=== PATIENT | female | born 1935 | race Caucasian/White ===

== ENCOUNTER 2020-06-02 20:11 | Emergency (ER) | payer OTHER ==
[2020-06-02 20:56] LABS: Absolute Neutrophil Ct (ANC) 4.65 (1.4-6.9); BASOPHIL % 0.4 % (0.0-0.4); Basophil (Absolute #) 0.04 (0-0.4); Eosinophil % 3.5 % (0.00-5.0); Eosinophil (Absolute #) 0.31 (0-0.5); Hematocrit 39.6 % (35-47); Hemoglobin 12.8 gm/dl (12.0-16.0); Mean Cell Volume 97.1 fl (78-100); Mean Corpuscular Hemoglobin 31.4 pg (26-32); Mean Corpuscular Hgb Concent. 32.3 g/dl (32-36); Mean Platelet Volume 12.8 fl (7.5-11.0); Monocyte (Absolute #) 0.55 (0.0-1.3); Monocytes % 6.1 % (0.0-12.0); Platelet Count 197 K/mm3 (150-450); Red Blood Count 4.08 M/mm3 (4.1-5.4); Red Cell Distribution Width 12.2 % (11.5-14.0)
[2020-06-02 21:08] LABS: ALBUMIN 4.8 g/dL (3.5-5.0); ALKALINE PHOSPHATASE 69 U/L (38-126); ANION GAP 17.3 MEQ/L (5-15); BLOOD UREA NITROGEN 41 mg/dL (7-17); CHLORIDE 102 mmol/L (98-107); Calcium 11.4 mg/dL (8.4-10.2); Carbon Dioxide 28 mmol/L (22-30); Creatinine 1 1.98 mg/dL (0.52-1.04); EST GLOMERULAR FILTRATION RATE 25.6 ML/MIN; ETHYL ALCOHOL < 10 mg/dL (0-10); Glucose 112 mg/dL (74-106); MAGNESIUM 1.6 mg/dL (1.6-2.3); Potassium 3.6 mmol/L (3.5-5.1); SGOT/AST 41 U/L (14-36); SGPT/ALT 30 U/L (0-35); SODIUM 143 mmol/L (137-145); Total Protein 7.6 g/dL (6.3-8.2)
[2020-06-02 21:46] LABS: Appearance CLEAR (CLEAR); Bilirubin NEGATIVE (NEGATIVE); Blood NEGATIVE Ery/ul (0-5); Glucose NEGATIVE (NEGATIVE); Ketones NEGATIVE (NEGATIVE); Leukocyte Esterase SMALL (NEGATIVE); Mucus SLIGHT /HPF (NEGATIVE); Nitrite NEGATIVE (NEGATIVE); Protein,Urine Dip NEGATIVE (Negative); RBC 0-2 /HPF (0-2); Specific Gravity 1.015 (1.005-1.025); Urobilinogen 2 mg/dL (0-1)
--- NOTE | 2020-06-02 21:50 | ERPHSYRPT ---
- History of Present Illness Time Seen by Provider: 06/02/20 20:15 Source: patient Exam Limitations: no limitations Patient Subjective Stated Complaint: "My blood pressure won't come down." Triage Nursing Assessment: Patient reported concern for high blood pressure. She reported recently changing her blood pressure medication and having trouble r egulating her blood pressure at home. She reported having a single isolated event of garbled speech one week ago without any other episodes since then. Denied past CVA/TIA. Denied pain at this time. Head atraumatic normocephalic. Pupils 3mm brisk direct and consensual reaction to light. Oral mucosa pink/moist. neck supple non-tender without lymphadenopathy. Carotid arteries without bruits/thrill. Heart tones S1/S2 regular rate and rhythm. Lungs vesicular with adequate airflow. Abdomen soft non-distened with normoactive bowel sounds. Peripheral pulses +2 bilateral. Gait steady without complications. Speech clear. No noted facial droop or pronator drift. Physician History: Patient is an 84-year-old female presents to our emergency department for evaluation of hypertension. Patient states that she has been experiencing hypertension for several weeks. 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 Patient recently had blood pressure medications changed. Patient became concerned today when she checked her blood pressure and it was 190 systolic. Patient states that last week she had an episode of garbled speech. However this lasted just a couple minutes and resolved. Patient had no other symptomology no numbness tingling or weakness. No chest pain,nausea or vomiting or diaphoresis. Patient did not seek medical attention at that time. Patient has a history of CABG. Patient voices no other complaints or concerns at this time. Timing/Duration: today, week(s) (1 week) Severity: mild Modifying Factors: Improves With: nothing Associated Symptoms: denies symptoms, No diaphoresis, No cough, No chest pain, No fever, No malaise, No syncope, No seizure, No weakness Allergies/Adverse Reactions: No Known Drug Allergies Allergy (Unverified 06/02/20 20:23) Home Medications: Atorvastatin Calcium [Lipitor 40Mg] 1 tab PO DAILY 06/02/20 [History] Atorvastatin Calcium [Lipitor 40Mg] 1 tab PO DAILY 06/02/20 [History] Furosemide 20 mg [Lasix 20 mg] 1 tab PO DAILY 06/02/20 [History] Levothyroxine Sodium 100 Mcg [Synthroid 100 Mcg] 1 tab PO DAILY 06/02/20 [ History] Lisinopril 1 tab PO DAILY 06/02/20 [History] Metoprolol Tartrate 25 mg [Lopressor 25MG Tab] 0.5 tab PO BID 06/02/20 [History] Hx Tetanus, Diphtheria Vaccination/Date Given: Yes Hx Influenza Vaccination/Date Given: Yes Hx Pneumococcal Vaccination/Date Given: No Travel Risk - International Travel Have you traveled outside of the country in past 3 weeks: No - Coronavirus Screening Are you exhibiting any of the following symptoms?: No Close contact with a COVID-19 positive Pt in past 14-21 Days: No - Review of Systems Constitutional: No Symptoms, No Fever, No Chills Eyes: No Symptoms Ears, Nose, & Throat: No Symptoms Respiratory: No Symptoms, No Cough, No Dyspnea Cardiac: No Symptoms, No Chest Pain, No Edema, No Syncope Abdominal/Gastrointestinal: No Symptoms, No Abdominal Pain, No Nausea, No Vomiting, No Diarrhea Genitourinary Symptoms: No Symptoms, No Dysuria Musculoskeletal: No Symptoms, No Back Pain, No Neck Pain Skin: No Symptoms, No Rash Neurological: No Symptoms, No Dizziness, No Focal Weakness, No Sensory Changes Psychological: No Symptoms Endocrine: No Symptoms Hematologic/Lymphatic: No Symptoms Immunological/Allergic: No Symptoms All Other Systems: Reviewed and Negative - Past Medical History Pertinent Past Medical History: Yes Neurological History: No Pertinent History ENT History: No Pertinent History Cardiac History: Coronary Artery Disease, High Cholesterol, Hypertension Respiratory History: No Pertinent History Endocrine Medical History: Hypothyroidism Musculoskeletal History: Arthritis GI Medical History: No Pertinent History History: No Pertinent History Psycho-Social History: No Pertinent History Female Reproductive Disorders: Fibroids - Past Surgical History Past Surgical History: Yes Neuro Surgical History: No Pertinent History Cardiac: CABG Respiratory: No Pertinent History Gastrointestinal: Appendectomy Genitourinary: No Pertinent History Musculoskeletal: Joint Replacement Female Surgical History: Hysterectomy Other Surgical History: bilateral hips and right shoulder replacement. - Social History Smoking Status: Never smoker Exposure to second hand smoke: No Drug Use: none Patient Lives Alone: Yes - Nursing Vital Signs Nursing Vital Signs: Initial Vital Signs Pulse Rate 91 H 06/02/20 20:12 Respiratory Rate 18 06/02/20 20:12 Blood Pressure 193/83 06/02/20 20:12 O2 Sat by Pulse Oximetry 98 06/02/20 20:12 Pain Scale Pain Intensity 0 - Physical Exam General Appearance: no apparent distress, alert Eye Exam: PERRL/EOMI, eyes nml inspection Ears, Nose, Throat Exam: normal ENT inspection, TMs normal, pharynx normal, moist mucous membranes Neck Exam: normal inspection, non-tender, supple, full range of motion Respiratory Exam: normal breath sounds, lungs clear, No respiratory distress Cardiovascular Exam: regular rate/rhythm, normal heart sounds, normal peripheral pulses Gastrointestinal/Abdomen Exam: soft, normal bowel sounds, No tenderness, No mass Back Exam: normal inspection, normal range of motion, No CVA tenderness, No vertebral tenderness Extremity Exam: normal inspection, normal range of motion, pelvis stable Neurologic Exam: alert, oriented x 3, cooperative, normal mood/affect, nml cerebellar function, sensation nml, No motor deficits Skin Exam: normal color, warm, dry, No rash Lymphatic Exam: No adenopathy SpO2 Interpretation: normal SpO2: 98 O2 Delivery: Room Air - Course Nursing assessment & vital signs reviewed: Yes EKG Interpreted by Me: RATE (79), Sinus Rhythm, NORMAL AXIS, NORMAL INTERVALS - CT Exams Head CT Interpretation: Tele-radiologist Report (Comes. 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 Atrophy plus degenerative microischemia otherwise negative CT head.) Ordered Tests: Active Orders 24 hr Category Date Time Status Lightout Examiner STAT Care 06/02/20 20:49 Active EKG-ER Only STAT Care 06/02/20 20:47 Active IV Insertion STAT Care 06/02/20 20:47 Active Pulse Oximetry (ED) STAT Care 06/02/20 20:47 Active HEAD WITHOUT CONTRAST [CT] Stat Exams 06/02/20 20:49 Taken CBC W DIFF Stat Lab 06/02/20 20:53 Completed CMP Stat Lab 06/02/20 20:53 Completed ETHYL ALCOHOL Stat Lab 06/02/20 20:53 Completed MAGNESIUM Stat Lab 06/02/20 20:53 Completed TROPONIN Q3H Lab 06/02/20 20:53 Completed TROPONIN Q3H Lab 06/03/20 00:04 Completed TROPONIN Q3H Lab 06/03/20 03:00 Ordered TROPONIN Q3H Lab 06/03/20 06:00 Ordered TROPONIN Q3H Lab 06/03/20 09:00 Ordered UA W/RFX UR CULTURE Stat Lab 06/02/20 21:20 Completed Urine Triage Profile Stat Lab 06/02/20 21:20 Completed Medication Summary Generic Name Dose Route Start Last Admin Trade Name Freq PRN Reason Stop Dose Admin Nitroglycerin/Dextrose 250 mls @ 1.5 mls/hr 06/03/20 00:19 06/03/20 00:38 Ntg 0.2mg/Ml In D5w Glass IV 07/03/20 00:18 5 mcg/min .Q24H PRN 1.5 mls/hr CHEST PAIN Administration Protocol 5 MCG/MIN Heparin Sodium/Dextrose 25,000 units in 250 mls @ 10 mls/hr 06/03/20 01:00 0 06/03/20 00:37 Heparin 25,000 Units/D5w 250ml Premix IV 07/03/20 00:59 10 mls/hr .Q24H TAYLOR 10 mls/hr Administration Discontinued Medications Generic Name Dose Route Start Last Admin Trade Name Freq PRN Reason Stop Dose Admin Heparin Sodium (Beef Lung) Confirm 06/03/20 00:29 Heparin 5000 Units/0.5 Ml (High Risk Med) Administered 06/03/20 00:30 Dose 5,000 unit .ROUTE .STK-MED ONE Heparin Sodium (Beef Lung) 5,000 unit 06/03/20 00:33 06/03/20 00:36 Heparin 5000 Units/0.5 Ml (High Risk Med) IV 06/03/20 00:34 5,000 unit STAT ONE Administration Heparin Sodium/Dextrose Confirm 06/03/20 00:29 Heparin 25,000 Units/D5w 250ml Premix Administered 06/03/20 00:30 Dose 25,000 units in 250 mls @ ud IV .STK-MED ONE Lab/Rad Data: Laboratory Result Diagrams 06/02/20 20:53 06/02/20 20:53 Laboratory Results 06/03/20 06/02/20 06/02/20 Range/Units 00:04 21:20 21:20 WBC (4.0-10.5) K/mm3 RBC (4.1-5.4) M/mm3 Hgb (12.0-16.0) gm/dl Hct (35-47) % MCV (78-100) fl MCH (26-32) pg MCHC (32-36) g/dl RDW (11.5-14.0) % Plt Count (150-450) K/mm3 MPV (7.5-11.0) fl Gran % (36.0-66.0) % Eos # (Auto) (0-0.5) Absolute Lymphs (auto) (1.0-4.6) Absolute Monos (auto) (0.0-1.3) Lymphocytes % (24.0-44.0) % Monocytes % (0.0-12.0) % Eosinophils % (0.00-5.0) % Basophils % (0.0-0.4) % Absolute Granulocytes (1.4-6.9) Basophils # (0-0.4) Sodium (137-145) mmol/L Potassium (3.5-5.1) mmol/L Chloride (98-107) mmol/L Carbon Dioxide (22-30) mmol/L Anion Gap (5-15) MEQ/L BUN (7-17) mg/dL Creatinine (0.52-1.04) mg/dL Estimated GFR ML/MIN Glucose (74-106) mg/dL Calcium (8.4-10.2) mg/dL Magnesium (1.6-2.3) mg/dL Total Bilirubin (0.2-1.3) mg/dL AST (14-36) U/L ALT (0-35) U/L Alkaline Phosphatase (38-126) U/L Troponin I 0.046 H* (0.000-0.034) ng/mL Serum Total Protein (6.3-8.2) g/dL Albumin (3.5-5.0) g/dL Urine Color YELLOW (YELLOW) Urine Appearance CLEAR (CLEAR) Urine pH 6.0 (5-6) Ur Specific Wentworth 1.015 (1.005-1.025) Urine Protein NEGATIVE (Negative) Urine Ketones NEGATIVE (NEGATIVE) Urine Blood NEGATIVE (0-5) Romulo/ul Urine Nitrite NEGATIVE (NEGATIVE) Urine Bilirubin NEGATIVE (NEGATIVE) Urine Urobilinogen 2 (0-1) mg/dL Ur Leukocyte Esterase SMALL (NEGATIVE) Urine WBC (Auto) 3-5 (0-5) /HPF Urine RBC (Auto) 0-2 (0-2) /HPF U Epithel Cells (Auto) NONE (FEW) /HPF Urine Bacteria (Auto) NONE (NEGATIVE) /HPF Urine Mucus (Auto) SLIGHT (NEGATIVE) /HPF Urine Culture Reflexed NO (NO) Urine Glucose NEGATIVE (NEGATIVE) mg/dL Urine Opiates Level NEGATIVE (NEGATIVE) Ur Methadone NEGATIVE (NEGATIVE) Urine Barbiturates NEGATIVE (NEGATIVE) Ur Phencyclidine (PCP) NEGATIVE (NEGATIVE) Urine Amphetamine NEGATIVE (NEGATIVE) U Benzodiazepine Level NEGATIVE (NEGATIVE) Urine Cocaine NEGATIVE (NEGATIVE) Urine Marijuana (THC) NEGATIVE (NEGATIVE) Ethyl Alcohol (0-10) mg/dL 06/02/20 06/02/20 06/02/20 Range/Units 20:53 20:53 20:53 WBC 9.0 (4.0-10.5) K/mm3 RBC 4.08 L (4.1-5.4) M/mm3 Hgb 12.8 (12.0-16.0) gm/dl Hct 39.6 (35-47) % MCV 97.1 (78-100) fl MCH 31.4 (26-32) pg MCHC 32.3 (32-36) g/dl RDW 12.2 (11.5-14.0) % Plt Count 197 (150-450) K/mm3 MPV 12.8 H (7.5-11.0) fl Gran % 52.0 (36.0-66.0) % Eos # (Auto) 0.31 (0-0.5) Absolute Lymphs (auto) 3.40 (1.0-4.6) Absolute Monos (auto) 0.55 (0.0-1.3) Lymphocytes % 38.0 (24.0-44.0) % Monocytes % 6.1 (0.0-12.0) % Eosinophils % 3.5 (0.00-5.0) % Basophils % 0.4 (0.0-0.4) % Absolute Granulocytes 4.65 (1.4-6.9) Basophils # 0.04 (0-0.4) Sodium 143 (137-145) mmol/L Potassium 3.6 (3.5-5.1) mmol/L Chloride 102 (98-107) mmol/L Carbon Dioxide 28 (22-30) mmol/L Anion Gap 17.3 H (5-15) MEQ/L BUN 41 H (7-17) mg/dL Creatinine 1.98 H (0.52-1.04) mg/dL Estimated GFR 25.6 ML/MIN Glucose 112 H (74-106) mg/dL Calcium 11.4 H (8.4-10.2) mg/dL Magnesium 1.6 (1.6-2.3) mg/dL Total Bilirubin 0.60 (0.2-1.3) mg/dL AST 41 H (14-36) U/L ALT 30 (0-35) U/L Alkaline Phosphatase 69 (38-126) U/L Troponin I 0.019 (0.000-0.034) ng/mL Serum Total Protein 7.6 (6.3-8.2) g/dL Albumin 4.8 (3.5-5.0) g/dL Urine Color (YELLOW) Urine Appearance (CLEAR) Urine pH (5-6) Ur Specific Wentworth (1.005-1.025) Urine Protein (Negative) Urine Ketones (NEGATIVE) Urine Blood (0-5) Romulo/ul Urine Nitrite (NEGATIVE) Urine Bilirubin (NEGATIVE) Urine Urobilinogen (0-1) mg/dL Ur Leukocyte Esterase (NEGATIVE) Urine WBC (Auto) (0-5) /HPF Urine RBC (Auto) (0-2) /HPF U Epithel Cells (Auto) (FEW) /HPF Urine Bacteria (Auto) (NEGATIVE) /HPF Urine Mucus (Auto) (NEGATIVE) /HPF Urine Culture Reflexed (NO) Urine Glucose (NEGATIVE) mg/dL Urine Opiates Level (NEGATIVE) Ur Methadone (NEGATIVE) Urine Barbiturates (NEGATIVE) Ur Phencyclidine (PCP) (NEGATIVE) Urine Amphetamine (NEGATIVE) U Benzodiazepine Level (NEGATIVE) Urine Cocaine (NEGATIVE) Urine Marijuana (THC) (NEGATIVE) Ethyl Alcohol < 10 (0-10) mg/dL - Progress Progress: improved Progress Note: 06/03/20 00:30 Patient is a 84-year-old female presents to our ED initially with concerns of possible stroke. Patient states she had garbled speech approximately 1 week ago. Patient has been checking her blood pressure at home. She is observed that her blood pressure was persistently elevated. CT head negative for acute intracranial pathology. Patient reassessed. No chest pain. Initial troponin 0 0.019. Follow-up troponin 0 0.046. Patient has a history of CABG x3 vessels. CABG was performed 20 years ago. Patient did say that she was experiencing some lower extremity swelling. However her primary doctor started her on Lasix. Her primary doctor is now retired. Patient's blood pressure was initially elevated 190 systolic. Blood pressure gradually improved down to 160 systolic. Blood pressure improved spontaneously. No antihypertensives were administered. In light of her history and progressively elevating troponin heparin and nitroglycerin drip was started. We do not have cardiology specialty in our hospital. Patient will be transferred to [facility] for further evaluation and treatment. We spoke to transfer center at [facility]. Patient was auto accepted. Patient will be transferred ED to ED. Counseled pt/family regarding: lab results, diagnosis, need for follow-up, rad results - Departure Departure Disposition: Transfer Clinical Impression: Hypertension, CRI (chronic renal insufficiency), NSTEMI (non-ST elevated myocardial infarction), Elevated troponin Condition: Stable Critical Care Time: No Referrals: RUDY DAIGLE MD [Primary Care Provider] - Additional Instructions: Discharge/Care Plan LUZ CARCAMO was seen on 06/02/20 in the Emergency Room. The patient was couns eled regarding Diagnosis,Lab results, Imaging studies, need for follow up and when to return to the Emergency Room. Prescriptions given: Discharge Note I have spoken with the patient and/or caregivers. I have explained the patient's condition, diagnosis and treatment plan based on the information available to me at this time. I have answered the patient's and/or caregiver's questions and addressed any concerns. The patient and/or caregivers have as good understanding of the patient's diagnosis, condition and treatment plan as can be expected at this point. The vital signs have been stable. The patient's condition is stable and appropriate for discharge from the emergency department. The patient will pursue further outpatient evaluation with the primary care physician or other designated or consulting physician as outlined in the discharge instructions. The patient and/or caregivers are agreeable to this plan of care and follow-up instructions have been explained in detail. The patient and/or caregivers have received these instruction. The patient/and or caregivers are aware that any significant change in condition or worsening of symptoms should prompt an immediate return to this or the closest emergency department or call 911.
[2020-06-02 21:58] LABS: Amphetamine,Urine NEGATIVE (NEGATIVE); Barbiturate,Urine NEGATIVE (NEGATIVE); Benzodiazepine,Urine NEGATIVE (NEGATIVE); Cocaine,Urine NEGATIVE (NEGATIVE); Methadone,Urine NEGATIVE (NEGATIVE); Opiate,Urine NEGATIVE (NEGATIVE); PCP,Urine NEGATIVE (NEGATIVE); THC,Urine NEGATIVE (NEGATIVE)
[2020-06-03] MEDS ORDERED: Heparin 25,000 units/D5W 250ML PREMIX 25,000 UNITS/250 ML BAG IV ONE (00:29)
[2020-06-03] MEDS ORDERED: Heparin 5000 UNITS/0.5 ML (HIGH RISK MED) ONE (00:29)
[2020-06-03] MEDS ORDERED: Ntg 0.2MG/Ml in D5W GLASS*** 250 ML IV ONE (00:36)
[2020-06-03] MEDS: Heparin 5000 UNITS/0.5 ML (HIGH RISK MED) IV ONE (00:36)
[2020-06-03] MEDS: Heparin 25,000 units/D5W 250ML PREMIX 25,000 UNITS/250 ML BAG IV SCH (00:37)
[2020-06-03] MEDS: Ntg 0.2MG/Ml in D5W GLASS*** 250 ML IV PRN (00:38)
[2020-06-03 01:32] VITALS: BP 171/65; PULSE 80; O2SAT 99
--- NOTE | 2020-06-03 08:40 | XRAY ---
Indication: Slurred speech 1 week. High blood pressure. Multiple contiguous axial images obtained through the head without contrast. Comparison: None Age-appropriate global atrophy and mild periventricular degenerative micro-ischemia bilaterally. 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 No acute intracranial hemorrhage, abnormal extra-axial fluid collection, or mass effect. Fourth ventricle is midline without hydrocephalus. Bony calvarium intact. Visualized paranasal sinuses and mastoid air cells are clear. 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
== END 2020-06-03 01:15 | disposition short-term general hospital (02) ==
LOC: ED 20:11
DX: I12.9 Hypertensive chronic kidney disease with stage 1 through stage 4 chronic kidney disease, or unspecified chronic kidney disease (principal); N18.9 Chronic kidney disease, unspecified; I21.4 Non-ST elevation (NSTEMI) myocardial infarction; I25.10 Atherosclerotic heart disease of native coronary artery without angina pectoris; E78.00 Pure hypercholesterolemia, unspecified; E03.9 Hypothyroidism, unspecified; Z79.899 Other long term (current) drug therapy
CPT/HCPCS: 36000; 36415; 70450; 80053; 80307; 81001; 83735; 84484; 85025; 93005; 93041; 94760; 96374; 99285; J1644; G0480

== ENCOUNTER 2021-05-03 23:57 | Emergency (ER) | payer MEDICARE, OTHER ==
--- NOTE | 2021-05-04 00:18 | ERPHSYRPT ---
- History of Present Illness Time Seen by Provider: 05/04/21 00:15 Source: patient, EMS Exam Limitations: no limitations Patient Subjective Stated Complaint: high blood pressure Triage Nursing Assessment: pt c/o htn. Was watching tv this evening and states, "I could just feel my b/p going up and I checked it at home it was 174/85. It continued to go up". EMS had 213/83. Lungs clear, heart tones reg, abd soft with active bs x4 quad, nontender. Physician History: This is an 85-year-old white female patient of Dr. Daigle and tablet machine operator Dr. Bhardwaj who presents to the emergency department with high blood pressure. Patient has a history of hypertension. Tonight, patient was watching a crime show when suddenly felt similar symptoms of generalized warmth. She has had this feeling before when her blood pressure was up. Her blood pressure was in the 190s systolic and was persistently elevated in that range when she checked it a few times. Therefore, she called the EMS service who brought her to the emergency department for evaluation. Patient has a history of hypertension and hypothyroidism. She also has a history of coronary artery disease and coronary artery bypass graft. Patient denies visual changes. She denies headache. She denies chest pain. She has no shortness of breath. On arrival to the emergency department her systolic blood pressure was 229 but within 10 minutes her systolic blood pressure did drop to 188 but was still elevated. She last took hydralazine at 8 PM on 05/03/2021. She also takes metoprolol for her blood pressure. Timing/Duration: today Severity: moderate Associated Symptoms: diaphoresis Allergies/Adverse Reactions: No Known Drug Allergies Allergy (Verified 05/04/21 00:12) Home Medications: Atorvastatin Calcium [Lipitor 40Mg] 1 tab PO DAILY 06/02/20 [History] Furosemide 20 mg [Lasix 20 mg] 1 tab PO DAILY 06/02/20 [History] Levothyroxine Sodium 100 Mcg [Synthroid 100 Mcg] 88 mcg PO DAILY 06/02/20 [History] Metoprolol Tartrate 25 mg [Lopressor 25MG Tab] 0.5 tab PO BID 06/02/20 [History] Aspirin 81 mg PO DAILY 05/04/21 [History] Cholecalciferol (Vitamin D3) [Vitamin D] 1,000 unit PO BID 05/04/21 [H istory] Cyanocobalamin (Vitamin B-12) [Vitamin B12] 1,000 mcg PO WEEKLY 05/04/21 [History] Famotidine 40 mg PO DAILY 05/04/21 [History] Fluticasone Propionate [Flonase NASAL] 2 sprays IH DAILY 05/04/21 [History] HydrALAzine HCL 25 MG TAB [Apresoline 25 MG TABLET] 25 mg PO BID 05/04/21 [History] Levocetirizine Dihydrochloride [Allergy Relief] 5 mg PO DAILY 05/04/21 [History] Nitroglycerin 0.4 mg Tablet [Nitrostat 0.4 MG Tablet] 1 tab PO DAILY PRN PRN 05/04/21 [History] Hx Tetanus, Diphtheria Vaccination/Date Given: No Hx Influenza Vaccination/Date Given: Yes Hx Pneumococcal Vaccination/Date Given: Yes Immunizations Up to Date: No Travel Risk - International Travel Have you traveled outside of the country in past 3 weeks: No - Coronavirus Screening Are you exhibiting any of the following symptoms?: No Close contact with a COVID-19 positive Pt in past 14-21 Days: No - Vaccine Status Have you recieved a Covid-19 vaccination: Yes 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 Comment: [place] booster - Review of Systems Constitutional: No Symptoms Eyes: No Symptoms Ears, Nose, & Throat: No Symptoms Respiratory: No Symptoms Cardiac: No Symptoms Abdominal/Gastrointestinal: No Symptoms Genitourinary Symptoms: No Symptoms Musculoskeletal: No Symptoms Skin: No Symptoms Neurological: No Symptoms Psychological: Anxiety Endocrine: No Symptoms Hematologic/Lymphatic: No Symptoms Immunological/Allergic: No Symptoms All Other Systems: Reviewed and Negative - Past Medical History Pertinent Past Medical History: Yes Neurological History: No Pertinent History ENT History: No Pertinent History, Cataracts Cardiac History: Coronary Artery Disease, High Cholesterol, Hypertension Respiratory History: No Pertinent History Endocrine Medical History: Hypothyroidism Musculoskeletal History: Arthritis GI Medical History: No Pertinent History History: No Pertinent History Psycho-Social History: No Pertinent History Female Reproductive Disorders: Fibroids - Past Surgical History Past Surgical History: Yes Neuro Surgical History: No Pertinent History Cardiac: CABG, Cardiac Catheterization Respiratory: No Pertinent History Gastrointestinal: Appendectomy Genitourinary: No Pertinent History Musculoskeletal: Joint Replacement Female Surgical History: Hysterectomy Other Surgical History: bilateral hips and right shoulder replacement. - Social History Smoking Status: Never smoker Exposure to second hand smoke: No Drug Use: none Patient Lives Alone: Yes - Female History Hx Now: No - Nursing Vital Signs Nursing Vital Signs: Initial Vital Signs Temperature 97.4 F 05/04/21 00:00 Pulse Rate 69 05/04/21 00:00 Respiratory Rate 18 05/04/21 00:00 Blood Pressure 229/112 05/04/21 00:00 O2 Sat by Pulse Oximetry 98 05/04/21 00:00 Pain Scale Pain Intensity 0 - Physical Exam General Appearance: no apparent distress, alert, anxiety Eye Exam: PERRL/EOMI, eyes nml inspection Ears, Nose, Throat Exam: normal ENT inspection, moist mucous membranes Neck Exam: normal inspection, non-tender, supple, full range of motion Respiratory Exam: normal breath sounds, lungs clear, airway intact, No chest tenderness, No respiratory distress Cardiovascular Exam: regular rate/rhythm, normal heart sounds, normal peripheral pulses Gastrointestinal/Abdomen Exam: soft, normal bowel sounds, No tenderness Pelvic Exam: not done Rectal Exam: not done, No tenderness Back Exam: normal inspection, normal range of motion, No vertebral tenderness Extremity Exam: normal inspection, normal range of motion, pelvis stable Neurologic Exam: alert, oriented x 3, cooperative, hospital plan administrator II-XII nml as tested, normal mood/affect, nml cerebellar function, nml station & gait, sensation nml Skin Exam: normal color, warm, dry Lymphatic Exam: No adenopathy SpO2 Interpretation: normal SpO2: 98 O2 Delivery: Room Air - Course Nursing assessment & vital signs reviewed: Yes EKG Interpreted by Me: RATE (60), Sinus Rhythm, NORMAL AXIS, NORMAL QRS, NORMAL ST-T, Other (Prolonged AL interval and LVH. When compared to EKG dated 06/02/2020, there is resolution of PVCs that were present on that EKG. There are no acute ischemic changes on either EKG.) Ordered Tests: Active Orders 24 hr Category Date Time Status EKG-ER Only STAT Care 05/04/21 00:18 Active IV Insertion STAT Care 05/04/21 00:18 Active Pulse Oximetry (ED) STAT Care 05/04/21 00:18 Active CBC W DIFF Stat Lab 05/04/21 00:31 Completed CMP Stat Lab 05/04/21 00:31 Completed NT PRO BNP Stat Lab 05/04/21 00:31 Completed T4 (Thyroxine) Stat Lab 05/04/21 00:59 Completed TROPONIN Q3H Lab 05/04/21 00:31 Completed TROPONIN Q3H Lab 05/04/21 03:30 Ordered TROPONIN Q3H Lab 05/04/21 06:30 Ordered TROPONIN Q3H Lab 05/04/21 09:30 Ordered TROPONIN Q3H Lab 05/04/21 12:30 Ordered TSH [TSH, 3RD Generation] Stat Lab 05/04/21 00:59 Completed Medication Summary Discontinued Medications Generic Name Dose Route Start Last Admin Trade Name Freq PRN Reason Stop Dose Admin Enalaprilat 0.625 mg 05/04/21 01:25 05/04/21 01:28 Enalaprilat 2.5 Mg Injection IV 05/04/21 01:26 0.625 mg STAT ONE Administration Enalaprilat Confirm 05/04/21 01:27 Enalaprilat 2.5 Mg Injection Administered 05/04/21 01:28 Dose 2.5 mg IV .STK-MED ONE Hydralazine HCl 10 mg 05/04/21 00:37 05/04/21 00:46 Hydralazine Hcl 20 Mg/Ml Vial IV 05/04/21 00:38 10 mg STAT ONE Administration Hydralazine HCl Confirm 05/04/21 00:42 Hydralazine Hcl 20 Mg/Ml Vial Administered 05/04/21 00:43 Dose 20 mg .ROUTE .STK-MED ONE Lab/Rad Data: Laboratory Result Diagrams 05/04/21 00:31 05/04/21 00:31 Laboratory Results 05/04/21 05/04/21 05/04/21 Range/Units 00:59 00:59 00:31 WBC (4.0-10.5) K/mm3 RBC (4.1-5.4) M/mm3 Hgb (12.0-16.0) gm/dl Hct (35-47) % MCV (78-100) fl MCH (26-32) pg MCHC (32-36) g/dl RDW (11.5-14.0) % Plt Count (150-450) K/mm3 MPV (7.5-11.0) fl Gran % (36.0-66.0) % Eos # (Auto) (0-0.5) Absolute Lymphs (auto) (1.0-4.6) Absolute Monos (auto) (0.0-1.3) Lymphocytes % (24.0-44.0) % Monocytes % (0.0-12.0) % Eosinophils % (0.00-5.0) % Basophils % (0.0-0.4) % Absolute Granulocytes (1.4-6.9) Basophils # (0-0.4) Sodium (137-145) mmol/L Potassium (3.5-5.1) mmol/L Chloride (98-107) mmol/L Carbon Dioxide (22-30) mmol/L Anion Gap (5-15) MEQ/L BUN (7-17) mg/dL Creatinine (0.52-1.04) mg/dL Estimated GFR ML/MIN Glucose (74-106) mg/dL Calcium (8.4-10.2) mg/dL Total Bilirubin (0.2-1.3) mg/dL AST (14-36) U/L ALT (0-35) U/L Alkaline Phosphatase (38-126) U/L Troponin I 0.021 (0.000-0.034) ng/mL NT-Pro-B Natriuret Pep (0-1800) pg/mL Serum Total Protein (6.3-8.2) g/dL Albumin (3.5-5.0) g/dL Thyroxine (T4) 9.64 (5.53-10.96) ug/dL TSH 3rd Generation 1.640 (0.47-4.68) mIU/L 05/04/21 05/04/21 Range/Units 00:31 00:31 WBC 8.3 (4.0-10.5) K/mm3 RBC 3.91 L (4.1-5.4) M/mm3 Hgb 12.6 (12.0-16.0) gm/dl Hct 37.8 (35-47) % MCV 96.7 (78-100) fl MCH 32.2 H (26-32) pg MCHC 33.3 (32-36) g/dl RDW 12.7 (11.5-14.0) % Plt Count 200 (150-450) K/mm3 MPV 12.5 H (7.5-11.0) fl Gran % 50.7 (36.0-66.0) % Eos # (Auto) 0.42 (0-0.5) Absolute Lymphs (auto) 3.08 (1.0-4.6) Absolute Monos (auto) 0.56 (0.0-1.3) Lymphocytes % 37.0 (24.0-44.0) % Monocytes % 6.7 (0.0-12.0) % Eosinophils % 5.0 (0.00-5.0) % Basophils % 0.6 (0.0-0.4) % Absolute Granulocytes 4.22 (1.4-6.9) Basophils # 0.05 (0-0.4) Sodium 139 (137-145) mmol/L Potassium 3.5 (3.5-5.1) mmol/L Chloride 103 (98-107) mmol/L Carbon Dioxide 25 (22-30) mmol/L Anion Gap 14.3 (5-15) MEQ/L BUN 20 H (7-17) mg/dL Creatinine 1.30 H (0.52-1.04) mg/dL Estimated GFR 41.5 ML/MIN Glucose 101 (74-106) mg/dL Calcium 10.6 H (8.4-10.2) mg/dL Total Bilirubin 0.50 (0.2-1.3) mg/dL AST 41 H (14-36) U/L ALT 36 H (0-35) U/L Alkaline Phosphatase 73 (38-126) U/L Troponin I (0.000-0.034) ng/mL NT-Pro-B Natriuret Pep 627 (0-1800) pg/mL Serum Total Protein 7.1 (6.3-8.2) g/dL Albumin 4.5 (3.5-5.0) g/dL Thyroxine (T4) (5.53-10.96) ug/dL TSH 3rd Generation (0.47-4.68) mIU/L - Progress Progress: improved Progress Note: 05/04/21 02:01 Patient states that she is feeling much better. She is very comfortable. She denies headache. She denies visual changes. She denies chest pain. She denies shortness of breath. Blood pressure at discharge sbp 140s and dbp 70s 05/04/21 02:02 Counseled pt/family regarding: lab results, diagnosis, need for follow-up - Departure Departure Disposition: Home Clinical Impression: Hypertensive urgency Condition: Stable Critical Care Time: Yes Critical Care Time(excluding separately billable procedures): Critical 30-74 mins Referrals: RUDY DAIGLE MD [Primary Care Provider] - Follow up/PCP as directed Additional Instructions: Resume your blood pressure medication this morning. Keep your appointment with Dr. Bhardwaj, your tablet machine operator, on 05/08/2021. Keep a a.m., noon and p.m. log of your blood pressure to show your tablet machine operator.
[2021-05-04 00:35] LABS: Absolute Neutrophil Ct (ANC) 4.22 (1.4-6.9); Basophil (Absolute #) 0.05 (0-0.4); Eosinophil (Absolute #) 0.42 (0-0.5); Hematocrit 37.8 % (35-47); Hemoglobin 12.6 gm/dl (12.0-16.0); Lymphocyte (Absolute #) 3.08 (1.0-4.6); Mean Cell Volume 96.7 fl (78-100); Mean Corpuscular Hemoglobin 32.2 pg (26-32); Mean Corpuscular Hgb Concent. 33.3 g/dl (32-36); Mean Platelet Volume 12.5 fl (7.5-11.0); Monocyte (Absolute #) 0.56 (0.0-1.3); Monocytes % 6.7 % (0.0-12.0); Neutrophil % 50.7 % (36.0-66.0); Platelet Count 200 K/mm3 (150-450); Red Blood Count 3.91 M/mm3 (4.1-5.4); Red Cell Distribution Width 12.7 % (11.5-14.0); White Blood Count 8.3 K/mm3 (4.0-10.5)
[2021-05-04] MEDS ORDERED: APRESOLINE 20 MG/ML INJ IV ONE (00:37)
[2021-05-04] MEDS ORDERED: APRESOLINE 20 MG/ML INJ ONE (00:42)
[2021-05-04 00:55] LABS: ALBUMIN 4.5 g/dL (3.5-5.0); ANION GAP 14.3 MEQ/L (5-15); BILIRUBIN,TOTAL 0.5 mg/dL (0.2-1.3); Calcium 10.6 mg/dL (8.4-10.2); Creatinine 1 1.3 mg/dL (0.52-1.04); EST GLOMERULAR FILTRATION RATE 41.5 ML/MIN; Potassium 3.5 mmol/L (3.5-5.1); Total Protein 7.1 g/dL (6.3-8.2)
[2021-05-04] MEDS ORDERED: VASOTEC I.V. 2.5 MG IV ONE ×2 (01:25→01:27)
[2021-05-04 01:55] VITALS: BP 146/75; PULSE 51
[2021-05-04 02:04] VITALS: O2SAT 98
== END 2021-05-04 02:12 | disposition home or self-care (01) ==
LOC: ED 23:57
DX: I16.0 Hypertensive urgency (principal); I10 Essential (primary) hypertension; I25.10 Atherosclerotic heart disease of native coronary artery without angina pectoris; E78.5 Hyperlipidemia, unspecified; Z79.899 Other long term (current) drug therapy
CPT/HCPCS: 36000; 36415; 80053; 83880; 84436; 84443; 84484; 85025; 93005; 94760; 96374; 99284; 99291; J0360

== ENCOUNTER 2024-01-18 08:24 | Emergency (ER) | payer MEDICARE ==
[2024-01-18 08:38] VITALS: TEMP 97.8
--- NOTE | 2024-01-18 08:42 | ERPHSYRPT ---
- History of Present Illness Time Seen by Provider: 01/18/24 08:40 Source: patient, family Exam Limitations: no limitations Patient Subjective Stated Complaint: Pt states that around 2300 last night she had head pain on the back right base and felt something "pop" and then she slept all night and now left side is hurting but the right side is not Triage Nursing Assessment: Pt brought to the ER by her daughter, hypertensive, bradycardic, rates pain as 2/10 at this time, reports that her left arm/shoulder "just doesn't feel right", pulses normal, denies chest pain, no difficulty breathing, skin n/w/d, no defecits noted, doesn't appear to be in any distress Physician History: Pt states that around 2300 last night she had head pain on the back right base and felt something "pop" and then she slept all night and now left side is hurting but the right side is not. reports that her left arm/shoulder "just doesn't feel right", denies chest pain, no difficulty breathing, skin n/w/d, no defecits noted, doesn't appear to be in any distress Timing/Duration: yesterday Quality: aching Severity of Pain-Max: mild Severity of Pain-Current: mild Recent Head Trauma: no recent headache/trauma Associated Symptoms: stiff neck, No loss of consciousness, No sensitive to ligh t, No speech problems Previous symptoms: no prior history Allergies/Adverse Reactions: No Known Drug Allergies Allergy (Verified 01/18/24 08:37) Home Medications: Atorvastatin Calcium [Lipitor 40Mg] 1 tab PO DAILY 06/02/20 [History] Furosemide 20 mg [Lasix 20 mg] 1 tab PO DAILY 06/02/20 [History] Levothyroxine Sodium 100 Mcg [Synthroid 100 Mcg] 88 mcg PO DAILY 06/02/20 [History] Aspirin 81 mg PO DAILY 05/04/21 [History] Cholecalciferol (Vitamin D3) [Vitamin D] 1,000 unit PO BID 05/04/21 [History] Cyanocobalamin (Vitamin B-12) [Vitamin B12] 1,000 mcg PO WEEKLY 05/04/21 [History] Famotidine 40 mg PO DAILY 05/04/21 [History] HydrALAzine HCL 25 MG TAB [Apresoline 25 MG TABLET] 50 mg PO BID 05/04/21 [History] Levocetirizine Dihydrochloride [Allergy Relief] 5 mg PO DAILY 05/04/21 [History] Amlodipine Besylate 5 mg [Norvasc 5 mg] 5 mg PO BID 01/18/24 [History] Escitalopram Oxalate [Lexapro] 5 mg PO DAILY 01/18/24 [History] Isosorbide Mononitrate [Isosorbide Mononitrate ER] 60 mg PO DAILY 01/18/24 [History] Metoprolol Succinate [Kapspargo Sprinkle] 25 mg PO DAILY 01/18/24 [History] Hx Tetanus, Diphtheria Vaccination/Date Given: No Hx Influenza Vaccination/Date Given: Yes Hx Pneumococcal Vaccination/Date Given: Yes Travel Risk - International Travel Have you traveled outside of the country in past 3 weeks: No - Emerging Infectious Disease Are you exhibiting symptoms associated with any current EIDs: No - Review of Systems Constitutional: No Fever, No Chills Eyes: No Symptoms Ears, Nose, & Throat: No Symptoms Respiratory: No Cough, No Dyspnea Cardiac: No Chest Pain, No Edema, No Syncope Abdominal/Gastrointestinal: No Abdominal Pain, No Nausea, No Vomiting, No Diarrhea Genitourinary Symptoms: No Dysuria Musculoskeletal: Neck Pain, No Back Pain, No Fall, No Joint Redness, No Joint Pain, No Joint Swelling Skin: No Rash Neurological: Focal Weakness (left shoulder), Headache, No Dizziness, No Sensory Changes Psychological: No Symptoms Endocrine: No Symptoms Hematologic/Lymphatic: No Symptoms All Other Systems: Reviewed and Negative - Past Medical History Pertinent Past Medical History: Yes Neurological History: No Pertinent History ENT History: No Pertinent History, Cataracts Cardiac History: Coronary Artery Disease, High Cholesterol, Hypertension Respiratory History: No Pertinent History Endocrine Medical History: Hypothyroidism Musculoskeletal History: Arthritis GI Medical History: No Pertinent History History: No Pertinent History Psycho-Social History: No Pertinent History Female Reproductive Disorders: Fibroids - Past Surgical History Past Surgical History: Yes Neuro Surgical History: No Pertinent History Cardiac: CABG, Cardiac Catheterization Respiratory: No Pertinent History Gastrointestinal: Appendectomy Genitourinary: No Pertinent History Musculoskeletal: Joint Replacement Female Surgical History: Hysterectomy Other Surgical History: bilateral hips and right shoulder replacement. - Social History Smoking Status: Never smoker Exposure to second hand smoke: No Drug Use: none Patient Lives Alone: Yes - Social Determinants of Health Will the patient participate in the screening: Yes Do you worry about a steady place to live?: No Do you have any problems with any of the following?: No known problems In the past 12 months,have you had to go without utilities?: No Transportation Issues: No Has anyone in your support network made you feel unsafe?: No Have you or anyone in your house had to go without enough: No - Nursing Vital Signs Nursing Vital Signs: Initial Vital Signs Temperature 97.8 F 01/18/24 08:28 Pulse Rate 58 L 01/18/24 08:28 Respiratory Rate 20 01/18/24 08:28 Blood Pressure 168/66 01/18/24 08:28 O2 Sat by Pulse Oximetry 97 01/18/24 08:28 Pain Scale Pain Intensity 4 - Physical Exam General Appearance: no apparent distress Eye Exam: PERRL/EOMI Ears, Nose, Throat Exam: normal ENT inspection, moist mucous membranes Neck Exam: normal inspection, supple, full range of motion, No meningismus Respiratory Exam: normal breath sounds, lungs clear Cardiovascular Exam: regular rate/rhythm, normal heart sounds Gastrointestinal/Abdominal Exam: soft, No tenderness, No distention Back Exam: normal inspection, normal range of motion Extremity Exam: normal inspection, normal range of motion, pelvis stable Mental Status Exam: alert, oriented x 3, 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 Exam: normal speech, PERRL, tongue midline, No abnormal eye position, No facial asymmetry, No facial droop, No facial paresthesias, No facial weakness Coordination/Gait Exam: normal cerebellar function Motor/Sensory Exam: no motor deficit, no sensory deficit DTR Exam: bicep (R): 2+, bicep (L): 2+, tricep (R): 2+, tricep (L): 2+, knee (R): 2+, knee (L): 2+, ankle (R): 2+, ankle (L): 2+ Skin Exam: normal color, warm, dry, No rash SpO2 Interpretation: normal SpO2: 97 O2 Delivery: Room Air - Course Nursing assessment & vital signs reviewed: Yes EKG Interpreted by Me: Non-specific ST Changes Rhythm Strip: Normal Sinus Rhythm - Radiology Exams Chest X-ray Interpretation: Interpreted by me, Reviewed by me, Teleradiologist Report - CT Exams Head CT Interpretation: Tele-radiologist Report Ordered Tests: Active Orders 24 hr Category Date Time Status EKG-ER Only STAT Care 01/18/24 08:48 Active IV Insertion STAT Care 01/18/24 08:48 Active CHEST 1 VIEW (PORTABLE) Stat Exams 01/18/24 08:49 Taken HEAD WITHOUT CONTRAST [CT] Stat Exams 01/18/24 08:53 Completed CBC W DIFF Stat Lab 01/18/24 09:11 Completed CMP Stat Lab 01/18/24 09:11 Completed D-DIMER QUANTITATIVE Stat Lab 01/18/24 09:11 Completed MAGNESIUM Stat Lab 01/18/24 09:11 Completed NT PRO BNPII Stat Lab 01/18/24 09:11 Completed PROTIME WITH INR Stat Lab 01/18/24 09:11 Completed TROPONIN Q4H Lab 01/18/24 09:11 Completed TSH [TSH, 3RD Generation] Stat Lab 01/18/24 09:11 Completed UA W/RFX UR CULTURE Stat Lab 01/18/24 09:21 Completed Angie 7-14 Day Holter ONCE RT 01/18/24 10:54 Completed Holter Monitor ASORD RT 01/18/24 10:31 Completed Medication Summary Discontinued Medications Generic Name Dose Route Start Last Admin Trade Name Lauren PRN Reason Stop Dose Admin Acetaminophen 975 mg 01/18/24 08:48 01/18/24 09:15 Acetaminophen 325 Mg Tablet PO 01/18/24 08:49 975 mg STAT ONE Administration Acetaminophen Confirm 01/18/24 09:13 Acetaminophen 325 Mg Tablet Administered 01/18/24 09:14 Dose 975 mg .ROUTE .STK-MED ONE Lab/Rad Data: Laboratory Result Diagrams 01/18/24 09:11 01/18/24 09:11 Laboratory Results 01/18/24 01/18/24 01/18/24 Range/Units 09:21 09:11 09:11 WBC (3.98-10.04) x10^3/uL RBC (3.93-5.22) x10^6/uL Hgb (11.2-15.7) g/dL Hct (34.1-44.9) % MCV (79.4-94.8) fL MCH (25.6-32.2) pg MCHC (32.2-35.5) g/dL RDW (11.7-14.4) % Plt Count (182-369) x10^3/uL MPV (9.4-12.3) fL Gran % (34.0-71.1) % Immature Gran % (Auto) (0.001-0.429) % Nucleat RBC Rel Count (0.00-0.2) % Eos # (Auto) (0.04-0.36) x10^3/uL Immature Gran # (Auto) (0.001-0.031) x10^3u/L Absolute Lymphs (auto) (1.18-3.74) x10^3/uL Absolute Monos (auto) (0.24-0.86) x10^3/uL Absolute Nucleated RBC (0.00-0.012) x10^3u/L Lymphocytes % (19.3-51.7) % Monocytes % (4.7-12.5) % Eosinophils % (0.7-5.8) % Basophils % (0.1-1.2) % Absolute Granulocytes (1.56-6.13) x10^3/uL Basophils # (0.01-0.08) x10^3/uL PT (9.4-12.5) SECONDS INR (0.8-3.0) D-Dimer (0.0-0.50) mg/L Sodium (135-145) mmol/L Potassium (3.5-5.1) mmol/L Chloride (98-107) mmol/L Carbon Dioxide (22-30) mmol/L Anion Gap (5-15) MEQ/L BUN (7-17) mg/dL Creatinine (0.52-1.04) mg/dL Estimated GFR ML/MIN Glucose (74-106) mg/dL Calcium (8.4-10.2) mg/dL Magnesium (1.6-2.3) mg/dL Total Bilirubin (0.2-1.3) mg/dL AST (14-36) U/L ALT (0-35) U/L Alkaline Phosphatase (38-126) U/L Troponin I < 0.012 (0.000-0.033) ng/mL NT-Pro-B Natriuret Pep (<300) pg/mL Serum Total Protein (6.3-8.2) g/dL Albumin (3.5-5.0) g/dL TSH 3rd Generation 0.452 L (0.470-4.680) mIU/L Urine Color Yellow (Yellow) Urine Appearance Clear (Clear) Urine pH 5.5 (4.6-8.0) Ur Specific [place] 1.010 (1.005-1.030) Urine Protein Negative (Negative) Urine Glucose (UA) Negative (Negative) mg/dL Urine Ketones Negative (Negative) Urine Blood Negative (Negative) Urine Nitrite Negative (Negative) Urine Bilirubin Negative (Negative) Urine Urobilinogen 0.2 (0.2) mg/dL Ur Leukocyte Esterase Negative (Negative) U Hyaline Cast (Auto) NONE SEEN (0-2) /LPF Urine Microscopic RBC 0-2 (0-5) /HPF Urine Microscopic WBC 0-2 (0-5) /HPF Ur Epithelial Cells None Seen (None Seen) /HPF Urine Bacteria None Seen (None Seen) /HPF Urine Culture Reflexed NO (NO) Slides for Path Review 01/18/24 01/18/24 01/18/24 Range/Units 09:11 09:11 09:11 WBC 7.1 (3.98-10.04) x10^3/uL RBC 3.91 L (3.93-5.22) x10^6/uL Hgb 12.3 (11.2-15.7) g/dL Hct 36.8 (34.1-44.9) % MCV 94.1 (79.4-94.8) fL MCH 31.5 (25.6-32.2) pg MCHC 33.4 (32.2-35.5) g/dL RDW 12.4 (11.7-14.4) % Plt Count 215 (182-369) x10^3/uL MPV 12.2 (9.4-12.3) fL Gran % 54.9 (34.0-71.1) % Immature Gran % (Auto) 0.1 (0.001-0.429) % Nucleat RBC Rel Count 0.0 (0.00-0.2) % Eos # (Auto) 0.21 (0.04-0.36) x10^3/uL Immature Gran # (Auto) 0.01 (0.001-0.031) x10^3u/L Absolute Lymphs (auto) 2.51 (1.18-3.74) x10^3/uL Absolute Monos (auto) 0.41 (0.24-0.86) x10^3/uL Absolute Nucleated RBC 0.00 (0.00-0.012) x10^3u/L Lymphocytes % 35.2 (19.3-51.7) % Monocytes % 5.8 (4.7-12.5) % Eosinophils % 2.9 (0.7-5.8) % Basophils % 1.1 (0.1-1.2) % Absolute Granulocytes 3.91 (1.56-6.13) x10^3/uL Basophils # 0.08 (0.01-0.08) x10^3/uL PT 10.9 (9.4-12.5) SECONDS INR 1.00 (0.8-3.0) D-Dimer 0.88 H* (0.0-0.50) mg/L Sodium 143 (135-145) mmol/L Potassium 3.7 (3.5-5.1) mmol/L Chloride 108 H (98-107) mmol/L Carbon Dioxide 22 (22-30) mmol/L Anion Gap 15.8 H (5-15) MEQ/L BUN 31 H (7-17) mg/dL Creatinine 1.43 H (0.52-1.04) mg/dL Estimated GFR 35.5 ML/MIN Glucose 109 H (74-106) mg/dL Calcium 10.8 H (8.4-10.2) mg/dL Magnesium 1.5 L (1.6-2.3) mg/dL Total Bilirubin 0.60 (0.2-1.3) mg/dL AST 40 H (14-36) U/L ALT 42 H (0-35) U/L Alkaline Phosphatase 62 (38-126) U/L Troponin I (0.000-0.033) ng/mL NT-Pro-B Natriuret Pep 553 (<300) pg/mL Serum Total Protein 7.1 (6.3-8.2) g/dL Albumin 4.5 (3.5-5.0) g/dL TSH 3rd Generation (0.470-4.680) mIU/L Urine Color (Yellow) Urine Appearance (Clear) Urine pH (4.6-8.0) Ur Specific [place] (1.005-1.030) Urine Protein (Negative) Urine Glucose (UA) (Negative) mg/dL Urine Ketones (Negative) Urine Blood (Negative) Urine Nitrite (Negative) Urine Bilirubin (Negative) Urine Urobilinogen (0.2) mg/dL Ur Leukocyte Esterase (Negative) U Hyaline Cast (Auto) (0-2) /LPF Urine Microscopic RBC (0-5) /HPF Urine Microscopic WBC (0-5) /HPF Ur Epithelial Cells (None Seen) /HPF Urine Bacteria (None Seen) /HPF Urine Culture Reflexed (NO) Slides for Path Review YES CLINICAL HISTORY: headache COMPARISON: None. TECHNIQUE: Axial non-contrast CT scan of the brain was performed from the skull base to the high parietal region. One of the following dose reduction techniques were utilized for this exam: Automated exposure control, adjustment of the mA and/or kV according to patient size, use of iterative reconstruction. CTDI: 53.92 mGy, DLP: 1083.55 mGycm FINDINGS: Brain Parenchyma: Lacunar infarct in left external capsule. Periventricular small vessel ischemic changes. Normal attenuation of rest of cerebral hemispheres, cerebellum, and brainstem. No evidence of hemorrhage, or mass effect. Ventricular System: Age-related prominence of ventricles. Subarachnoid Spaces: Prominent sulci and cisterns. No evidence of subarachnoid hemorrhage or extra-axial fluid collections. PatientID: [id number] Patient Name: LUZ CARCAMO Exam Date: 01/18/2024 Procedure: HEAD WITHOUT CONTRAST page 1 of 2 Cerebellum and Brainstem: Normal size and attenuation. Orbits: Normal appearance of the globes, optic nerves, and extraocular muscles. Sinuses: Clear paranasal sinuses. No evidence of sinusitis or mucosal thickening. Mastoid Air Cells: Clear mastoid air cells. No evidence of mastoiditis. Skull and Meninges: Normal skull morphology. IMPRESSION: 1. 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 2. Age-related brain atrophy and periventricular small vessel ischemic changes. ECHO REPORT DATE OF PROCEDURE: 10/09/2023 REFERRING PHYSICIAN: Rudy Daigle MD, and Geoffrey Bhardwaj MD. PROCEDURE: Echocardiogram. REASON FOR EXAMINATION: Heart murmur and hypertension. DESCRIPTION OF FINDINGS: Patient underwent 2D echo, M-mode study, and color flow mapping, which showed mild concentric left ventricular hypertrophy with left ventricular wall thickness of 1.3 cm, normal LV size measuring 4.7 cm, and normal LV systolic function with a calculated ejection fraction of 74%. The left atrium appears to be mildly enlarged. The right atrium was normal in size. The right ventricle was normal in size and function. There was no evidence of any pericardial effusion. The aortic root size was within normal limits. The mitral valve appears to be mildly thickened with mild to moderate mitral annulus calcification, however, without evidence of any stenosis of the mitral valve. There was mild calcific aortic sclerosis without obvious evidence of any significant stenosis. The peak gradient was about 12 and mean gradient of 6 mmHg. The tricuspid valve appears to be pliable and opening well. Pulmonic valve appears to be without any obvious abnormalities. Color Doppler flow mapping showed mild mitral regurgitation and trace pulmonic insufficiency. IMPRESSION: 1) MILD CONCENTRIC LEFT VENTRICULAR HYPERTROPHY. 2) NORMAL LEFT VENTRICULAR SYSTOLIC FUNCTION. 3) CALCIFIC AORTIC SCLEROSIS WITHOUT OBVIOUS EVIDENCE OF ANY AORTIC STENOSIS. 4) MILD MITRAL REGURGITATION. - Progress Progress: improved Air Movement: good Progress Note: 01/18/24 10:21 Patient lab discussed with patient and her daughter. Patient has a moderately poor renal function her GFR is approximately 35 and patient D-dimer came 0.88 but considering her kidney function and patient denies any shortness of breath or any blood clot related symptoms we will consider this as a possibility due to poor renal function. Her daughter is informed about that. Patient CT abdomen head also showed chronic vascular changes with old lacunar infarct. Patient heart rate has been staying in range of 50-60 which has been concerned show I discussed with patient and daughter to contact the vascular physician. Blood Culture(s) Obtained: No Antibiotics given: No Counseled pt/family regarding: lab results, diagnosis, need for follow-up, rad results Medical Desision Making - Independent Historian Additional History obtained from: Family - Discussion of managment Reviewed:: Test results, Need for additional workup - Diagnostic Testing Diagnostic test were ordered, analyzed, and reviewed by me: Yes Radiological Interpretation: Teleradiologist Report - Risk of complications The pt has a mod risk of morbidity or mortality based on: Need for prescription drug management, Need for minor surgical intervention in patient with know risk factors - Departure Departure Disposition: Home Clinical Impression: Dizziness and giddiness, Elevated d-dimer, Bradyarrhythmia, Low TSH level Chronic renal insufficiency, stage III (moderate) Qualifiers: Chronic kidney disease stage 3 subtype: stage 3b (GFR 30-44) Qualified Code(s): N18.32 - Chronic kidney disease, stage 3b Condition: Stable Critical Care Time: No Referrals: RUDY DAIGLE MD [Primary Care Provider] - Follow up/PCP as directed Instructions: Bradycardia, D-dimer test Additional Instructions: We have applied a Holter monitor for 2 weeks. You should decrease your thyroid medication dose from 100 mcg to 88 mcg. Follow-up with Dr. Bhardwaj cardiology as well as your primary care physician. Discharge/Care Plan LUZ CARCAMO was seen on 01/18/24 in the Emergency Room. The patient was counseled regarding Diagnosis,Lab results, Imaging studies, need for follow up and when to return to the Emergency Room. Prescriptions given: Discharge Note I have spoken with the patient and/or caregivers. I have explained the patient's condition, diagnosis and treatment plan based on the information available to me at this time. I have answered the patient's and/or caregiver's questions and addressed any concerns. The patient and/or caregivers have as good understanding of the patient's diagnosis, condition and treatment plan as can be expected at this point. The vital signs have been stable. The patient's condition is stable and appropriate for discharge from the emergency department. The patient will pursue further outpatient evaluation with the primary care physician or other designated or consulting physician as outlined in the discharge instructions. The patient and/or caregivers are agreeable to this plan of care and follow-up instructions have been explained in detail. The patient and/or caregivers have received these instruction. The patient/and or caregivers are aware that any significant change in condition or worsening of symptoms should prompt an immediate return to this or the closest emergency department or call 911. LUZ CARCAMO was seen on 01/18/24 n the Emergency Room. At that time you were treated for an emergent condition, during your visit Laboratory, Radiology and/or other procedures may have been ordered. It is very important that you follow-up with your Primary Care Physician RUDY DAIGLE within the next 24- 48 hours to review your Emergency Room visit and the final results of testing t hat was ordered. Some test results such as Urine Cultures, Blood Cultures, and other cultures if ordered will not be finalized for 24-48 hours. If you do not have a Primary Care Provider please call the medical records department at [phone] ext [phone] to obtain a copy of your results or you may sign into our patient portal to obtain these results by visiting us @ [email or web address] and completing the following steps: 1. Click on the Patient Portal link 2. Click the Patient Self Enrollment Link to complete the enrollment form and entering your 3. Once the enrollment form is completed you will receive an email with a temporary ID and password at the email address you provided. 4. Next choose a user name and password. Your user name must be at least 4 characters long and your password must be at least 4 characters long. 5. Choose a security question from the list and provide your answer to the question. If you already have signed into the Health Portal you may access your Health Care Information 01/10 by the following steps: 1. Login to our website @ [email or web address] 2. Enter your original user name and password. FAQS The [facility] Health Portal is an online tool that contains your Lab Results, Radiology Reports, Visit History, Discharge Instructions and Health Summary Lab and Radiology Results will not be available for 72 hours on the portal. The Portal is a secure site, passwords are encryted and URLs are re-written so they cannot be copied and pasted. You and authorized family members are the only ones who can access your Portal. Also there is a timeout feature that protects your information if you leave the Portal page open. If you have technical difficulty please use the Contact Us link on the page this will allow you to submit any questions you have regarding the Portal or you may contact the Medical Record Department at [phone].
[2024-01-18 09:12] LABS: Absolute Neutrophil Ct (ANC) 3.91 x10^3/uL (1.56-6.13); BASOPHIL % 1.1 % (0.1-1.2); Basophil (Absolute #) 0.08 x10^3/uL (0.01-0.08); Eosinophil % 2.9 % (0.7-5.8); Eosinophil (Absolute #) 0.21 x10^3/uL (0.04-0.36); Hematocrit 36.8 % (34.1-44.9); Hemoglobin 12.3 g/dL (11.2-15.7); IMMATURE GRAN # 0.01 x10^3u/L (0.001-0.031); IMMATURE GRAN % 0.1 % (0.001-0.429); Lymphocyte (Absolute #) 2.51 x10^3/uL (1.18-3.74); Lymphocytes % 35.2 % (19.3-51.7); Mean Cell Volume 94.1 fL (79.4-94.8); Mean Corpuscular Hemoglobin 31.5 pg (25.6-32.2); Mean Corpuscular Hgb Concent. 33.4 g/dL (32.2-35.5); Mean Platelet Volume 12.2 fL (9.4-12.3); Monocyte (Absolute #) 0.41 x10^3/uL (0.24-0.86); Monocytes % 5.8 % (4.7-12.5); Neutrophil % 54.9 % (34.0-71.1); Platelet Count 215 x10^3/uL (182-369); Red Blood Count 3.91 x10^6/uL (3.93-5.22); Red Cell Distribution Width 12.4 % (11.7-14.4); White Blood Count 7.1 x10^3/uL (3.98-10.04)
[2024-01-18] MEDS ORDERED: TYLENOL 325 MG ONE (09:13)
[2024-01-18] MEDS: TYLENOL 325 MG PO ONE (09:15)
[2024-01-18 09:34] LABS: PROTIME 10.9 SECONDS (9.4-12.5)
[2024-01-18 09:37] LABS: ALBUMIN 4.5 g/dL (3.5-5.0); ANION GAP 15.8 MEQ/L (5-15); BILIRUBIN,TOTAL 0.6 mg/dL (0.2-1.3); Calcium 10.8 mg/dL (8.4-10.2); Creatinine 1 1.43 mg/dL (0.52-1.04); EST GLOMERULAR FILTRATION RATE 35.5 ML/MIN; MAGNESIUM 1.5 mg/dL (1.6-2.3); Potassium 3.7 mmol/L (3.5-5.1); Total Protein 7.1 g/dL (6.3-8.2)
[2024-01-18 09:38] LABS: D-DIMER QUANTITATIVE 0.88 mg/L (0.0-0.50)
[2024-01-18 09:43] LABS: Appearance Clear (Clear); Bacteria None Seen /HPF (None Seen); Bilirubin Negative (Negative); Blood Negative (Negative); Epithelial Cells None Seen /HPF (None Seen); Glucose, Urine Negative (Negative); Hyaline Casts NONE SEEN /LPF (0-2); Ketones Negative (Negative); Leukocyte Esterase Negative (Negative); Nitrite Negative (Negative); Ph 5.5 (4.6-8.0); Protein,Urine Dip Negative (Negative); RBC 0-2 /HPF (0-5); Urobilinogen 0.2 mg/dL (0.2); WBC 0-2 /HPF (0-5)
--- NOTE | 2024-01-18 09:47 | XRAY ---
CLINICAL HISTORY: headache COMPARISON: None. TECHNIQUE: Axial non-contrast CT scan of the brain was performed from the skull base to the high parietal region. One of the following dose reduction techniques were utilized for this exam: Automated exposure control, adjustment of the mA and/or kV according to patient size, use of iterative reconstruction. CTDI: 53.92 mGy, DLP: 1083.55 mGycm FINDINGS: Brain Parenchyma: Lacunar infarct in left external capsule. Periventricular small vessel ischemic changes. Normal attenuation of rest of cerebral hemispheres, cerebellum, and brainstem. No evidence of hemorrhage, or mass effect. Ventricular System: Age-related prominence of ventricles. Subarachnoid Spaces: Prominent sulci and cisterns. No evidence of subarachnoid hemorrhage or extra-axial fluid collections. Cerebellum and Brainstem: Normal size and attenuation. Orbits: Normal appearance of the globes, optic nerves, and extraocular muscles. Sinuses: Clear paranasal sinuses. No evidence of sinusitis or mucosal thickening. Mastoid Air Cells: Clear mastoid air cells. No evidence of mastoiditis. Skull and Meninges: Normal skull morphology. IMPRESSION: 1. 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 2. Age-related brain atrophy and periventricular small vessel ischemic changes. Electronically Signed by: Teri Whitt MD. (01/18/2024 09:43:40 EST)
[2024-01-18 10:08] LABS: Slide Review 1 YES
[2024-01-18 10:24] VITALS: O2SAT 97
[2024-01-18 11:21] VITALS: BP 154/62; PULSE 50; RESP 22
--- NOTE | 2024-01-18 20:38 | XRAY ---
Indication: Left shoulder pain. Weakness. Dizziness. Comparison: None Portable apical lordotic chest hyperinflated and clear with a few tiny left lung calcified granulomas. Heart not enlarged with CABG and small mediastinal calcified nodes. Bony thorax intact with osteopenia, mild degenerative changes, mild dextroscoliosis, and right shoulder arthroplasty. Impression: Nonacute chest with chronic features.
== END 2024-01-18 11:48 | disposition home or self-care (01) ==
LOC: ED 08:24
DX: R42 Dizziness and giddiness (principal); R79.1 Abnormal coagulation profile; I49.8 Other specified cardiac arrhythmias; R94.6 Abnormal results of thyroid function studies; I12.9 Hypertensive chronic kidney disease with stage 1 through stage 4 chronic kidney disease, or unspecified chronic kidney disease; N18.32 Chronic kidney disease, stage 3b; R51.9 Headache, unspecified; E78.5 Hyperlipidemia, unspecified; Z79.899 Other long term (current) drug therapy
CPT/HCPCS: 36000; 36415; 70450; 71045; 80053; 81001; 83735; 83880; 84443; 84484; 85025; 85379; 85610; 93005; 93225; 99284; 99285; A9270-GY